=== PATIENT | male | born 1995 | race Caucasian/White ===

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

== ENCOUNTER → 2017-01-26 | Outpatient (CLI) | payer OTHER ==
[~2017-01-26] MED LIST: CLEOCIN HC150 MG/CAP PO; LEXAPRO 5MG5 MG PO
== END ==
LOC: BHSO 14:01
DX: F41.1 Generalized anxiety disorder (principal)

== ENCOUNTER 2019-05-30 19:54 | Emergency (ER) | payer SELFPAY ==
[~2019-05-30] VITALS: Ht 177.8 cm; Wt 77.3 kg
[2019-05-30 21:09] VITALS: BP 136/76; PULSE 86; TEMP 98.4
== END 2019-05-30 21:09 | disposition home or self-care (01) ==
LOC: COL.ER 19:54
DX: S61.411A Laceration without foreign body of right hand, initial encounter (principal); Z23 Encounter for immunization; W25.XXXA Contact with sharp glass, initial encounter